=== PATIENT | female | born 1975 | race African-American/Black ===

== ENCOUNTER → 2021-02-01 03:03 | Outpatient (CLI) | payer SELFPAY ==
[2021-02-01 19:46] LABS: SARS-CoV-2 RNA PCR Negative
== END ==
PROVIDERS: Visit Provider Surgery Plastic and Reconstructive Surgery
DX: Z01.812 Encounter for preprocedural laboratory examination (principal); Z20.822 Contact with and (suspected) exposure to COVID-19
CPT/HCPCS: C9803; U0003; U0005

== ENCOUNTER 2021-02-04 00:51 | Day surgery (SDC) | payer OTHER, SELFPAY ==
[2021-01-28 08:45] VITALS: BMI 26.2
[2021-02-04] VITALS (11 sets, daily range): BP systolic 95–122; BP diastolic 66–85; PULSE 64–79; RESP 9–20; TEMP 36–36.9; O2SAT 97–100
--- NOTE | 2021-02-04 07:08 | WPDHPUPDATE1 ---
History and Physical Update Update Date/Time: 02/04/21 07:08 History and Physical has been reviewed, including an updated exam of the patient. There are NO changes in the patient's condition. Risks, benefits, and alternatives have been discussed and questions answered. Patient agrees to proceed with procedure.
--- NOTE | 2021-02-04 07:15 | WPDANESEPPF ---
Anes - Initial Pre Proc Eval Procedure: Operation Date: 02/04/21 08:30 Proposed Procedures p Abdominoplasty - Soren Mederos MD Date/Time: 02/04/21 07:15 Surgeon: Soren Mederos MD Pre Op Diagnosis: Skin Laxity Patient Data Age: 45 Gender: F Height: 5 ft 3 in Weight: 67 kg Allergies Allergy/AdvReac Type Severity Reaction Status Date / Time No Known Allergies Allergy Verified 01/28/21 08:43 Home Medications Medication Instructions Recorded Confirmed Type carisoprodol 350 mg tablet 350 mg PO TID PRN #21 tablet 01/21/21 01/28/21 Rx docusate sodium 100 mg capsule 100 mg PO DAILY #14 cap 01/21/21 01/28/21 Rx ondansetron HCl 4 mg tablet 4 mg PO Q8H #21 tablet 01/21/21 01/28/21 Rx oxycodone-acetaminophen 5 mg-325 1 tablet PO Q6H PRN #15 tablet 01/21/21 01/28/21 Rx mg tablet cetirizine [Zyrtec] 10 mg PO DAILY 01/28/21 01/28/21 History levonorgestrel [Mirena] 1 device INTRAUTERINE ONCE 01/28/21 01/28/21 History propranolol 10 mg PO PRN 01/28/21 01/28/21 History zolmitriptan [Zomig] 1 spray INTRANASAL Q2H PRN 01/28/21 01/28/21 History Laboratory Tests 02/04/21 07:01 Cotinine Pending Patient hx anesthesia problems: none Family hx anesthesia problems: none [facility] Surgical History Surgical History H/O hernia repair History of Social History Social History Smoking status: Never smoker Second hand tobacco smoke exposure: No Alcohol intake: current Drinks per week: 1 Substance use: never Living arrangements: with family Anes - Eval Final PreProcedure Day of Procedure 02/04/21 07:15 Patient weight: overweight Heart: regular rate and rhythm Lungs: clear to auscultation Airway: Mallampati scale class II Neurological: alert and oriented Last oral intake: >/= 8 hours ASA classification: II Emergent: no Anesthetic plan: proceed Anesthesia type and monitoring: general ETT and standard monitoring Informed Consent: The patient's anesthetic plan and its attendant risks and benefits were discussed with the patient/family/POA. Questions were solicited and answers provided to the satisfaction of the patient/family/POA.
[2021-02-04] MEDS: LACTATED RINGERS 1,000 ML 30 ML IV CONT ×2 (07:42→10:51)
[2021-02-04] MEDS: ceFAZolin 2 GM/D5W 50 ML 2 GM/50 ML BAG IVPB (08:12)
[2021-02-04] MEDS: LACTATED RINGERS IRRIG 1,000 ML, LIDOCAINE HCL 1% LOCAL INJ 50 ML, EPINEPHrine HCL INJ ... INFILTRATE ×2 (08:38)
[2021-02-04 10:09] LABS: Urine Cotinine NEGATIVE (Negative)
--- NOTE | 2021-02-04 10:28 | SUR.OPER ---
EBL 30ML
--- NOTE | 2021-02-04 10:40 | PM.PROC ---
Procedure Note - Detailed Date of procedure: 02/04/21 Pre-op diagnosis: Skin Laxity Post-op diagnosis: same Procedure performed: Progressive Tension Abdominoplasty Description of procedure: She is here today for abdominoplasty. Previously and again today the risks, benefits, alternatives were discussed in extensive detail. I wanted her to be very realistic about the risks involved as well as expectations. We discussed aftercare and what to monitor for. I was very upfront about the risks of wound breakdown leading to loss of skin, open wounds, and need for additional procedures with permanent abdominal deformity. We discussed DVT/PE risks and management. Made sure answered all of her questions to her satisfaction today and consent was obtained. She was marked in the preoperative holding area with their verification. The patient was taken to the operating room placed supine on the operating table. Anesthesia was provided by anesthesiology. A vivas catheter was started. She was prepped and draped in a standard sterile fashion. A surgical time-out was taken. I placed the patient in a flexed position to verify the upper and lower markings would reach. I then placed her supine. A thorough abdominal examination was completed. Stab incisions were made and used tumescent solution. A 10 blade was used to make the upper incision. I continued dissection down to the level of fascia. Elevated just what was necessary for repair of the diastasis and discontinuous undermining otherwise. I then again flexed the bed to verify the upper skin flap would reach the lower markings without tension. Once verified I placed her supine once again and a 10 blade used to make the lower incision. I elevated up to level the umbilicus and left the umbilicus intact on a well-vascularized stalk. Discontinuously undermined with 4mm basket suction canula without suction. The intervening tissue was removed. A 2 mm blunt cannula and Exparel which was mixed 20 cc in 100 cc for a total volume of 120 cc I injected deep to the fascia bilaterally as well as along the incision lines. I plicated the diastasis recti using 0 PDO stratafix barbed suture. This was in 2 separate layers using 2 separate sutures as well. I repaired around the umbilicus leaving plenty of room for well-vascularized stalk of the umbilicus with 2-0 PDS. I also tighted obliques with 0 PDO stratafix barbed sutures in 2 separate layers bilateral. The patient was flexed and starting from superior to inferior began plication using 2-0 Vicryl to obliterate all space in a standard progressive tension fashion. At the umbilicus I marked out the location of the skin and inset this with 3-0 Monocryl and 4-0 nylon. I continued the remainder of the plication using 2-0 Vicryl until I reached my lower planned scar line. I trimmed any excess skin of the upper flap making sure this was a tension-free closure. I then approximated using a 3 point suture with 2-0 Vicryl followed by 3-0 stratafix ,running subcuticular 4-0 Monocryl, and tissue glue. Fluffs and an abdominal binder were placed. The patient was transferred to the bed in a flexed position. Awoken and taken to the PACU without difficulty. All instrument and sponge counts were correct at the end of the case. Anesthesia: GLMA Surgeon: Soren Mederos MD Estimated blood loss (mL): 30 Drains: No Packing: No Pathology: none sent Complications: No immediate complications Condition: stable Disposition: PACU Findings: Repair diastasis and obliques Abdominal tissue removed 656.9 grams
--- NOTE | 2021-02-04 11:06 | SUR.PHASEI ---
pt received with hob elevated and knees elevated and remains .
[2021-02-04] MEDS: ONDANSETRON INJ 4 MG/2 ML VIAL IV PUSH ×2 (11:42→19:11)
[2021-02-04] MEDS: LACTATED RINGERS 1,000 ML 125 ML IV CONT (12:45)
[2021-02-04] MEDS: MORPHINE SULFATE (*CRX) 2 MG/ML INJ IV PUSH (13:20)
[2021-02-04] MEDS: oxyCODONE/ACETAMINOPHEN (*CRX) 5-325 MG TABLET PO ×2 (14:59→22:08)
[2021-02-04] MEDS: DOCUSATE SODIUM 100 MG CAPSULE PO (18:44)
[2021-02-04] MEDS: ENOXAPARIN 40 MG/0.4 ML SYRINGE SUB-Q (18:44)
[2021-02-04] MEDS: carisoprodoL (*CRX) 350 MG TABLET PO (18:44)
[2021-02-04] MEDS: IBUPROFEN 600 MG TABLET PO (22:41)
[2021-02-05] MEDS: carisoprodoL (*CRX) 350 MG TABLET PO ×3 (01:06→11:27)
[2021-02-05 04:05] VITALS: BP 93/65; PULSE 63; RESP 16; TEMP 36.6; O2SAT 96
[2021-02-05] MEDS: oxyCODONE/ACETAMINOPHEN (*CRX) 5-325 MG TABLET PO ×2 (05:57→11:26)
[2021-02-05 05:58] VITALS: BP 100/68
--- NOTE | 2021-02-05 06:44 | WPDPN ---
Progress Note: A&P Assessment and Plan (1) Skin laxity: Code(s): L57.4 - Cutis laxa senilis Status: Acute Assessment and Plan: She is doing very well after progressive tension abdominoplasty. Will discharge home. She has a full list of instructions. She has elected to use ambulation as her DVT prophylaxis master after discharge. We had a lengthy open-ended conversation about the care after. What to monitor for. She is going to call with any questions or concerns. Time Spent With Patient Time with patient: 15 - 25 minutes Review of Systems Review of Systems: All systems reviewed & are unremarkable except as noted in HPI and below Exam Narrative: Exam Narrative: Abdomen is healing well. No signs of infection. No hematoma. No seroma. Good color and capillary refill. No calf tenderness. Negative Homans. Const: General: comfortable, no acute distress, alert and awake; No acute distress Orientation/consciousness: oriented to person HENMT: Head: normal to inspection Ears: external ears normal General nose exam: Normal external nose present Face and sinus: normal facial exam Eyes: General: appearance normal, both eyes and all related structures Periorbital: periorbital findings normal Eyelids: eyelids normal Conjunctivae: conjunctivae normal Neck: Neck: normal visual inspection Chest: Chest palpation & inspection: normal inspection of the chest Resp: Effort & Inspection: normal respiratory effort and able to speak in complete sentences GI: Inspection: normal to inspection Neuro: General: oriented to person Psych: Appearance: grossly normal Mental Status: mental status grossly normal Objective Data Vital Signs Vital Signs: Vital Signs - 24 hr 02/04/21 07:44 02/04/21 10:51 02/04/21 11:05 Temperature 36.9 C 36.0 C L 36.0 C L Pulse Rate 67 70 70 Respiratory Rate 12 11 L Blood Pressure 111/75 107/67 112/73 Pulse Oximetry 100 100 100 02/04/21 11:20 02/04/21 11:35 02/04/21 11:50 Temperature 36.3 C L 36.3 C L 36.4 C Pulse Rate 72 69 71 Respiratory Rate 10 L 9 L 13 Blood Pressure 112/67 108/69 111/69 Pulse Oximetry 100 100 99 02/04/21 12:05 02/04/21 12:20 02/04/21 17:30 Temperature 36.3 C L 36.9 C Pulse Rate 66 64 79 Respiratory Rate 11 L 20 18 Blood Pressure 117/69 111/72 99/70 L Pulse Oximetry 100 98 99 02/04/21 19:35 02/04/21 23:50 02/05/21 04:05 Temperature 36.5 C 36.6 C 36.6 C Pulse Rate 71 71 63 Respiratory Rate 18 18 16 Blood Pressure 122/85 95/66 L 93/65 L Pulse Oximetry 100 97 96 02/05/21 05:58 Temperature Pulse Rate Respiratory Rate Blood Pressure 100/68 Pulse Oximetry Intake/Output Intake/Output: Intake & Output 02/02/21 02/03/21 02/04/21 02/05/21 23:59 23:59 23:59 23:59 Intake Total 1640 300 Output Total 890 600 Balance 750 -300 Meds/Results Medications: Active Medications Generic Name Dose Route Start Last Admin Trade Name Freq PRN Reason Stop Dose Admin Carisoprodol 350 mg 02/04/21 18:00 02/05/21 05:57 Carisoprodol (*Crx) 350 Mg Tablet PO 350 mg Q6HR TASHI Administration Docusate Sodium 100 mg 02/04/21 21:00 02/04/21 18:44 Docusate Sodium 100 Mg Capsule PO 100 mg Q12HR TASHI Administration Enoxaparin Sodium 40 mg 02/04/21 18:00 02/04/21 18:44 Enoxaparin 40 Mg/0.4 Ml Syringe SUB-Q 40 mg DAILY@1800 TASHI Administration Lactated Ringer's 1,000 mls @ 125 mls/hr 02/04/21 10:45 02/04/21 12:45 Lr - Lactated Ringers Iv IV CONT 125 mls/hr .Q8H TASHI Administration Ibuprofen 600 mg 02/04/21 22:22 02/04/21 22:41 Ibuprofen 600 Mg Tablet PO 600 mg Q6H PRN Administration Breakthrough Pain Loratadine 10 mg 02/05/21 09:00 Loratadine 10 Mg Tablet PO 03/07/21 09:01 DAILY TASHI Morphine Sulfate 2 mg 02/04/21 10:44 02/04/21 13:20 Morphine Sulfate (*Crx) 2 Mg/Ml Inj IV PUSH 2 mg Q2H PRN Administration Pain Non-Formulary Medication 1 spray
--- NOTE | 2021-02-05 06:47 | PM.DS ---
DS: Admitting Diagnosis Admitting Diagnosis Admitting Diagnosis: Skin laxity DS: Discharge Diagnosis Discharge Diagnosis (1) Skin laxity: Code(s): L57.4 - Cutis laxa senilis Status: Acute DS: Summary Hospital Course Hospital Course: She underwent progressive tension abdominoplasty. Postoperatively has done well. Pain controlled. Ambulating. Tolerating diet. She has elected to use ambulation after discharge for her DVT prophylaxis. Will discharge home. Time Spent with Patient Time attestation: Total time spent providing and/or coordinating discharge services: 20 minutes Exam Narrative: Exam Narrative: Abdomen is healing well. No signs of infection. No hematoma. No seroma. Good color and capillary refill. No calf tenderness. Negative Homans. Const: General: comfortable, no acute distress, alert and awake; No acute distress Orientation/consciousness: oriented to person HENMT: Head: normal to inspection Ears: external ears normal General nose exam: Normal external nose present Face and sinus: normal facial exam Eyes: General: appearance normal, both eyes and all related structures Periorbital: periorbital findings normal Eyelids: eyelids normal Conjunctivae: conjunctivae normal Neck: Neck: normal visual inspection Chest: Chest palpation & inspection: normal inspection of the chest Resp: Effort & Inspection: normal respiratory effort and able to speak in complete sentences GI: Inspection: normal to inspection Neuro: General: oriented to person Psych: Appearance: grossly normal Mental Status: mental status grossly normal DS: Data Data Completed and Pending Labs on day of discharge: Labs from last 24 hours 02/04/21 07:01 Cotinine Negative Discharge Plan Discharge Patient Disposition: Home, Self-Care Discharge Instructions: POST OPERATIVE DISCHARGE INSTRUCTIONS \ SOREN MEDEROS M.D. [facility] [address] [place] [address] [address] for 24 hours after anesthesia and while you are taking pain medication. Take all prescribed medication as directed Diet as tolerated. No lifting or activity that raises blood pressure for 48 hours. Regular walking / ambulation. No showering until directed to. Once you shower do not take pain medication before showering as the combination of medication and heat may cause you to feel dizzy or pass out. No pools or tubs for 2 weeks. Call with any questions or concerns. No straining or lifting more than 20 pounds. Slowly stand up straight as tolerated. Dressing Care: May shower. Continue abdominal binder 23 hours per day. If you have any questions or concerns, please call the office . If it is after hours you will be directed to the program professional exchange. Shortness of breath, chest pain, or other medical emergency dial 911 / proceed to the Emergency Room. Stand Alone Forms: General Discharge Instructions Follow-up/Referrals: Soren Mederos MD [Physician] - 1 Week Discharge Medications: Continued ondansetron HCl [Zofran] 4 mg tablet 4 mg PO Q8H Qty: 21 RF: 0 docusate sodium [Colace] 100 mg capsule 100 mg PO DAILY Qty: 14 RF: 0 carisoprodol [Soma] 350 mg tablet 350 mg PO TID PRN (Reason: muscle pain) Qty: 21 RF: 0 oxycodone-acetaminophen [Percocet] 5-325 mg tablet 1 tablet PO Q6H PRN (Reason: pain) Qty: 15 RF: 0 cetirizine [Zyrtec] 10 mg Tablet 10 mg PO DAILY RF: 0 Mirena 20 mcg/24 hours (6 yrs) 52 mg Intrauterine Device 1 device INTRAUTERINE ONCE RF: 0 propranolol 10 mg tablet 10 mg PO PRN RF: 0 zolmitriptan [Zomig] 5 mg [place],Non-Aerosol 1 spray INTRANASAL Q2H PRN (Reason: MIGRIANE) RF: 0
[2021-02-05 08:50] VITALS: BP 105/74; PULSE 72; RESP 16; TEMP 36.8; O2SAT 100
[2021-02-05] MEDS: DOCUSATE SODIUM 100 MG CAPSULE PO (08:56)
[2021-02-05] MEDS: IBUPROFEN 600 MG TABLET PO (08:57)
[2021-02-05] MEDS: LORATADINE 10 MG TABLET PO (08:57)
--- NOTE | 2021-02-05 11:05 | WPDANESPN ---
Anes - Prog Note Post-Op Date/Time: 02/05/21 11:05 Cardiovascular status: normal Respiratory status: normal Airway patency: baseline Mental status: baseline Post-Op hydration status: normal Vital Signs: Last Vital Signs Temp 36.8 C 02/05/21 08:50 Pulse 72 02/05/21 08:50 Resp 16 02/05/21 08:50 BP 105/74 02/05/21 08:50 Pulse Ox 100 02/05/21 08:50 Pain Score (VAS): 0 I/O: Intake & Output 02/04/21 02/05/21 02/05/21 23:59 07:59 15:59 Intake Total 990 300 Output Total 850 600 Balance 140 -300 Post-procedural complaints: none Patient Feedback: Patient satisfied with anesthetic care.
--- NOTE | 2021-02-05 11:15 | PC.NURSE ---
PT received discharge instructions per protocol and verbalized understanding of such instructions.
[2021-02-05] MEDS: ONDANSETRON HCL ODT 4 MG TABLET (11:26)
--- NOTE | 2021-02-05 11:58 | PC.NURSE ---
PT discharged to home via wheelchair accompanied by significant other and taken to waiting car. Follow up appts confirmed
--- NOTE | 2021-02-05 12:48 | PC.NURSE ---
Addendum entered by Rickey Dia RN 02/05/21 12:49: Actual discharge to home at 1158 Original Note: PT discharged to home via wheelchair accompanied by significant other and taken to waiting car. Follow up appts confirmed
== END 2021-02-05 11:58 | disposition home or self-care (01) ==
LOC: ANHSURGERY 10:44 → ANHOB2 13:42
PROVIDERS: PCP Internal Medicine; Visit Provider Surgery Plastic and Reconstructive Surgery
PROC: (CPT 15830; principal; 2021-02-04 08:30)
DX: Z41.1 Encounter for cosmetic surgery (principal); L57.4 Cutis laxa senilis; Z79.899 Other long term (current) drug therapy
CPT/HCPCS: 15830; 15847; 80307; 99199; A9270; C9290; J0171; J0330; J0690; J1100; J1170; J1650; J2250; J2270; J2405; J2704; J3010; J7120